=== PATIENT | male | born 1965 | race African-American/Black ===

== ENCOUNTER 2019-05-28 12:49 | Inpatient (IN) | payer MEDICARE ==
[~2019-05-28] VITALS: Ht 185.4 cm; Wt 94.3 kg
[2019-05-28] MEDS ORDERED: OLANZAPINE 5 MG TABLET ONE (13:27)
[2019-05-28] MEDS ORDERED: OLANZAPINE 5 MG TABLET PO ONE (13:30)
--- NOTE | 2019-05-28 13:34 | NUR ---
PT REC'D TO ER VIA EMS FOUND WALKING VERY CONFUSED SMWLLS
--- NOTE | 2019-05-28 13:34 | NUR ---
SMELLS LIKE ETOH LABS AND UA SNE T TO LABAWAITING EVALUATION BY ER PROVIDER.
[2019-05-28 13:36] LABS: BASOPHILS # (AUTO) 0.1 /CMM (0.0-0.2); BASOPHILS % (AUTO) 1.2 % (0.0-2.0); EOSINOPHILS % (AUTO) 0.6 % (0.0-6.0); HEMATOCRIT 42 % (39-51); HEMOGLOBIN 13.9 g/dL (13.5-17.5); LYMPHOCYTES # (AUTO) 3.3 /CMM (0.8-4.8); LYMPHOCYTES % (AUTO) 42.4 % (20.0-44.0); MEAN CORPUSCULAR HGB CONC 33 g/dl (31.0-36.0); MEAN CORPUSCULAR VOLUME 95 fL (80-96); MONOCYTES # (AUTO) 0.6 /CMM (0.1-1.30); MONOCYTES % (AUTO) 7.1 % (2.0-12.0); NEUTROPHILS # (AUTO) 3.8 /CMM (1.8-8.9); NEUTROPHILS % (AUTO) 48.7 % (43.0-81.0); PLATELET COUNT (AUTO) 217 /CMM (150-450); WHITE BLOOD COUNT (AUTO) 7.9 K/uL (4.3-11.0)
[2019-05-28 13:38] LABS: APPEARANCE,URINE Clear (CLEAR); BILIRUBIN,URINE Negative (NEGATIVE); BLOOD, URINE Negative Ery/uL (NEGATIVE); COLOR,URINE Yellow (YELLOW); KETONES,URINE Negative (NEGATIVE); LEUKOCYTE ESTERASE ,URINE Negative (NEGATIVE); NITRITE, URINE Negative (NEGATIVE); PROTEIN,URINE Negative (NEGATIVE); UGLUCOSE >=1000 mg/dL (NEGATIVE); UROBILINOGEN,URINE 0.2 EU/dL (0.2)
[2019-05-28 13:46] LABS: CALCIUM, SERUM 9.5 mg/dL (8.5-10.1); CARBON DIOXIDE 26 mmol/L (21-32); CHLORIDE 99 mmol/L (98-107); GLUCOSE 313 mg/dL (74-106); POTASSIUM 4.5 mmol/L (3.5-5.1); SODIUM SERUM 135 mmol/L (136-145); UREA NITROGEN, BLOOD 16 mg/dL (7-18)
[2019-05-28 13:48] LABS: BACTERIA,URINE None seen /HPF (None Seen); RBC,URINE 0-2 /HPF (0-2); SQUAMOUS EPITHELIAL CELL,UR Few /HPF (None Seen); WBC,URINE 0-1 /HPF (0-3)
[2019-05-28 13:51] LABS: ACETAMINOPHEN 0 ug/ml (10-30); ALANINE AMINOTRANSFERASE 86 U/L (12-78); ALBUMIN 4.2 g/dL (3.4-5.0); ALCOHOL, BLOOD < 3 mg/dL (0-0); ALKALINE PHOSPHATASE 117 U/L (46-116); ASPARTATE AMINOTRANSFERASE 54 U/L (15-37); BILIRUBIN,DIRECT 0.3 mg/dL (0.0-0.2); BILIRUBIN,TOTAL 0.7 mg/dL (0.2-1.0); SALICYLATE 3.4 mg/dL (2.8-20.0); TOTAL PROTEIN, SERUM 8.5 g/dL (6.4-8.2)
[2019-05-28] MEDS ORDERED: INSULIN REGULAR, HUMAN 100 UNIT/ML 10 ML VIAL SQ ONE (14:30)
[2019-05-28] MEDS ORDERED: IV NS 0.9% 1,000 ML BAG IV ONE ×2 (14:30→16:30)
--- NOTE | 2019-05-28 14:55 | NUR ---
iv started left ac 20g ivp iv fluids and insulin given per md order
--- NOTE | 2019-05-28 15:12 | NUR ---
pt sent to [place]
[2019-05-28] MEDS ORDERED: LORAZEPAM INJ 2 MG/ML VIAL ONE (16:21)
[2019-05-28] MEDS ORDERED: LORAZEPAM INJ 2 MG/ML VIAL IV ONE (16:30)
--- NOTE | 2019-05-28 16:30 | NUR ---
pt walking around acting nervous and anxous ativan 1 mg ivp
--- NOTE | 2019-05-28 17:17 | NUR ---
pt sleeping soundly iv patent no redness at site infusing#2 bag 1000ccns tko
[2019-05-28] MEDS ORDERED: BUPR75TA8 PO (17:19)
[2019-05-28] MEDS ORDERED: ATOR20TA PO (17:19)
[2019-05-28] MEDS ORDERED: LISI10TA5 PO (17:19)
[2019-05-28] MEDS ORDERED: OLAN10TA3 PO (17:19)
--- NOTE | 2019-05-28 18:06 | NUR ---
CALLED NURSING CHAIN PULLER FOR MS BED.
--- NOTE | 2019-05-28 18:24 | NUR ---
327-[facility]
--- NOTE | 2019-05-28 19:49 | NUR ---
CALLED RENEE WITH UPDATE, LEFT VOICEMAIL, AWAITING CALL BLACK
--- NOTE | 2019-05-28 20:05 | NUR ---
PT RESTING IN BED, NAD NOTED. WILL CONTINUE TO MONITOR.
--- NOTE | 2019-05-28 20:20 | NUR ---
PER RENEE, SHE WILL COME BACK AND CHANGE NOTE IN A WHILE, PT WILL GO VOLUNTARY TO GPS UNIT
--- NOTE | 2019-05-28 20:26 | NUR ---
CALLED NURSING SUP FOR GPS BED
--- NOTE | 2019-05-28 20:37 | NUR ---
GPS 212-B
--- NOTE | 2019-05-28 20:57 | NUR ---
REPORT GIVEN TO CHEN REYES FOR [facility]ANA.
[2019-05-28] MEDS ORDERED: buPROPion 75 MG TABLET PO SCH (21:00)
[2019-05-28 21:10] VITALS: BP 138/88
--- NOTE | 2019-05-28 21:10 | NUR ---
GPS ADMISSION NOTES: ADMITTED THIS 53-YR OLD MALE, FROM [facility], WHO WAS BROUGHT B/B EMS FOR BIZARRE BEHAVIOR, ABDOMINAL PAIN AND FOOT PAIN. PATIENT ADMITTED ON VOLUNTARY STATUS. UPON FACE TO FACE ASSESSMENT, PATIENT IS ALERT, ORIENTED X2-3, CONFUSED AT TIMES, BLUNTED AND FLAT AFFECT, HYPERVERBAL, ANXIOUS, DELUSIONAL, PATIENT HEARING VOICES AND TELLING HIM THAT "LUCIFER WILL GIVE ME $15 MILLION". BUT DENIES ANY SI OR HI. REORIENTATION PROVIDED. NO AGITATION NOTED. PT. RIGHTS AND GUIDELINES DISCUSSED AND A GUIDE TO PRESCRIPTION MEDICATIONS PROVIDED. NOT IN ANY FORM OF DISTRESS. BELONGINGS WERE INVENTORIED AND CHECKED FOR CONTRABAND. PT. IS UNDER THE PSYCHIATRIC CARE OF DR. HOFFMANN ORDERS OBTAINED, AND UNDER THE MEDICAL CARE OF DR. MARQUEZ. SKIN ASSESSMENT PERFORMED. SKIN IS INTACT. BED LOCKED AND PLACED IN LOWEST POSITION TO MAINTAIN SAFETY. FALL PRECAUTIONS IN PLACE. WILL CONTINUE TO MONITOR Q15 MIN ROUNDS FOR SAFETY AND BEHAVIOR. NO FAMILY TO BE NOTIFIED OF ADMISSION.
[2019-05-28] MEDS ORDERED: ZOLPIDEM TARTRATE 5 MG TABLET PO PRN (21:30)
[2019-05-28] MEDS ORDERED: ACETAMINOPHEN 325 MG TABLET PO PRN (21:30)
[2019-05-28] MEDS ORDERED: LORAZEPAM 1 MG TABLET PO PRN (21:30)
[2019-05-28] MEDS ORDERED: MAGNESIUM HYDROXIDE 30 ML UDC PO PRN (21:30)
[2019-05-28] MEDS ORDERED: MAG HYDROX/AL HYDROX/SIMETH 30 ML UDC PO PRN (21:30)
[2019-05-28] MEDS ORDERED: ATORVASTATIN 10 MG TABLET PO SCH (22:00)
[2019-05-28] MEDS ORDERED: BLOOD SUGAR DIAGNOSTIC 1 EACH STRIP IN ONE (22:00)
--- NOTE | 2019-05-28 22:39 | NUR ---
GPS-RN PATIENT REFUSED TO HAVE HIS BLOOD SUGAR CHECK AND REFUSED HIS SCHEDULED MEDICATION LIPITOR FOR TONIGHT. DESPITE OF EXPLANATION THE IMPORTANCE BUT PATIENT STILL REFUSED.
[2019-05-28] MEDS ORDERED: *INSULIN REGULAR(HUMULIN R)HUM 100 UNIT/ML VIAL SQ PRN (23:00)
[2019-05-28] MEDS ORDERED: DEXTROSE 50%-WATER 50 ML DISP.SYRIN IV PRN (23:00)
[2019-05-29] MEDS: BLOOD SUGAR DIAGNOSTIC 1 EACH STRIP VI SCH ×2 (07:28→11:53)
[2019-05-29] MEDS: INSULIN REGULAR, HUMAN 100 UNIT/ML 3 ML VIAL SQ PRN ×2 (07:32→11:58)
[2019-05-29 08:16] VITALS: BP 127/87
[2019-05-29 08:30] VITALS: BP 127/87
[2019-05-29] MEDS ORDERED: NICOTINE PATCH (14MG) 14 MG PATCH.TD24 TD SCH (09:00)
[2019-05-29] MEDS ORDERED: LISINOPRIL (10MG) 10 MG TABLET PO SCH (09:00)
[2019-05-29] MEDS ORDERED: OLANZAPINE 5 MG/TAB.RAPDIS PO SCH (12:00)
--- NOTE | 2019-05-29 15:07 | NUR ---
RN NOTE- PT WANTED TO LEAVE AMA. PT ALERT, ORIENTED TO PERSON PLACE TIME. NO ACUTE DISTRESS, VITAL SIGNS STABLE. SKIN INTACT. DR HOFFMANN NOTIFIED OF PTS REQUEST. PT BELONGINGS RETURNED TO PT. SIGNED AMA, WRISTBAND ID REMOVED. ESCORTED OUT OF FACILITY. PT STATES, "IM GOING HOME TO MY LADY."
[2019-05-29] MEDS ORDERED: OLANZAPINE 10 MG TABLET PO SCH (18:00)
== END 2019-05-29 15:00 | disposition left against medical advice (07) | DRG 885 ==
LOC: ER 12:52 → GPS 20:35
PROVIDERS: ADMIT Psychiatry & Neurology Psychiatry; ATTEND Family Medicine
DX: F29 Unspecified psychosis not due to a substance or known physiological condition (principal); E11.65 Type 2 diabetes mellitus with hyperglycemia; F20.0 Paranoid schizophrenia; I10 Essential (primary) hypertension; F10.10 Alcohol abuse, uncomplicated; Y90.0 Blood alcohol level of less than 20 mg/100 ml
CPT/HCPCS: 36415; 70450-TC; 76705-TC; 80048-TC; 80076-TC; 80305; 81000-TC; 82140-TC; 82962-TC; 85025-TC; 87081-TC; 97116-TC; 97530-TC; G0480; J1815; J2060; J7030